=== PATIENT | male | born 1970 | race Two or more races ===

== ENCOUNTER 2017-12-30 13:59 | Emergency (ER) | payer OTHER ==
[2017-12-30 14:11] VITALS: BP 117/81
--- NOTE | 2017-12-30 14:33 | UC ---
Abdominal Pain Male HPI - HPI Summary HPI Summary: Mild, constant pain in R side just under ribs for almost two weeks. First noticed with bending forward to tie shoe -- sat up and had widespread muscle cramping in abdominal muscles, this passed after seconds to minutes, and the dull ache remained. Has been able to keep up normal activities, even gone running, hasn't gotten better or worse. Reports much more than normal alcohol intake in recent weeks because of social events and he developed reflux/GI discomfort which responded well to antacid and is completely gone now. Denies problems with urinary or bowel symptoms. No vomiting or diarrhea. - History of Current Complaint Chief Complaint: UCGeneralIllness Stated Complaint: SIDE PAIN Time Seen by Provider: 12/30/17 14:12 Hx Obtained From: Patient Onset/Duration: Sudden Onset, Lasting Weeks Timing: Constant Severity Initially: Mild Severity Currently: Mild Pain Intensity: 1 Location: Other - R lateral mid abd Radiates: Yes Radiates to: Back Character: Aching Alleviating Factor(s): Rest Associated Signs And Symptoms: Positive: Other - Allergies/Home Medications Allergies/Adverse Reactions: Allergies Allergy/AdvReac Type Severity Reaction Status Date / Time No Known Allergies Allergy Verified 12/30/17 14:05 Home Medications: Home Medications Calcium Carb/Magnesium Hydrox [Antacid 675-135 mg Tab Chew] 1 each PO DAILY PRN 12/30/17 [History Confirmed 12/30/17] PMH/Surg Hx/FS Hx/Imm Hx Previously Healthy: Yes - Surgical History Surgical History: Yes Surgery Procedure, Year, and Place: Hernia repair - Family History Known Family History: Positive: Hypertension - Social History Occupation: Employed Full-time Lives: With Family Alcohol Use: Weekly Substance Use Type: None Smoking Status (MU): Never Smoked Tobacco Review of Systems Constitutional: Negative Skin: Negative Eyes: Negative ENT: Negative Respiratory: Negative Cardiovascular: Negative Gastrointestinal: Abdominal Pain Genitourinary: Negative Motor: Negative Neurovascular: Negative Musculoskeletal: Negative Neurological: Negative Psychological: Negative Is Patient Immunocompromised?: No All Other Systems Reviewed And Are Negative: Yes Physical Exam Triage Information Reviewed: Yes Appearance: Well-Appearing, No Pain Distress, Well-Nourished Vital Signs: Initial Vital Signs Temp 97.7 F 12/30/17 14:06 Pulse 67 12/30/17 14:06 Resp 18 12/30/17 14:06 BP 117/81 12/30/17 14:06 Pulse Ox 98 12/30/17 14:06 Vital Signs Reviewed: Yes Eye Exam: Normal Eyes: Positive: Conjunctiva Clear ENT Exam: Normal ENT: Positive: Normal ENT inspection, Hearing grossly normal, Pharynx normal, TMs normal Dental Exam: Normal Neck exam: Normal Neck: Positive: Supple, Nontender, No Lymphadenopathy Respiratory Exam: Normal Respiratory: Positive: Chest non-tender, Lungs clear, Normal breath sounds, No respiratory distress, No accessory muscle use Cardiovascular Exam: Normal Cardiovascular: Positive: RRR, No Murmur Abdomen Description: Positive: No Organomegaly, Other: - focal mild tenderness on R side just below rib margin. Negative: CVA Tenderness (R), CVA Tenderness ( L), Distended, Guarding, Hernia @, McBurney's Point Tenderness Musculoskeletal Exam: Normal, Other - Able to twist trunk, sit, stand, walk, and bend forward without exacerbating side pain Musculoskeletal: Positive: Strength Intact, ROM Intact Neurological Exam: Normal Neurological: Positive: Alert Psychological Exam: Normal Skin Exam: Normal Abd Pain Male Course/Dx - Differential Dx/Clinical Impression Differential Diagnosis/HQI/PQRI: Constipation, Diverticulitis, Gall Bladder Disease, Renal Colic, Ureteral Stone Provider Diagnoses: Abdominal pain Discharge - Sign-Out/Discharge Documenting (check all that apply): Discharge/Admit/Transfer - Discharge Plan Condition: Stable Disposition: HOME Patient Education Materials: Abdominal Pain (ED) Referrals: Saleem العلي MD [Medical Doctor] - 1 Week Additional Instructions: We have not determined the cause of your pain today. Continue on a normal diet, minimize your alcohol intake, and look for new symptoms. There were cysts noted in your liver, but these do not have a worrisome or dangerous look to them. If needed, your primary care provider can order a follow -up test such as an ultrasound. If your pain gets worse, if you faint, if you have blood in your urine or stool , or if you develop fever, please go to the emergency department. I strongly recommend you try to get an appointment before January for further workup. 1-2 weeks would be best. Bloodwork pending. - Billing Disposition and Condition Condition: STABLE Disposition: HOME
--- NOTE | 2017-12-30 15:36 | RAD ---
CLINICAL HISTORY: 2 weeks of right flank and back pain COMPARISON: None TECHNIQUE: Noncontrast CT examination of the abdomen and pelvis from the lung bases through the initial tuberosities. FINDINGS: VISUALIZED LUNG BASES: The visualized lung bases are grossly clear. There is no pleural effusion. ABDOMEN AND PELVIS: Evaluation of the solid organs and vasculature is limited without intravenous contrast. There are multiple low-attenuation foci throughout the liver most consistent with benign cysts. The spleen, pancreas and adrenal glands are grossly normal in appearance. The gallbladder is normal. The kidneys are normal in appearance without focal mass, calcification or signs of hydronephrosis. Evaluation of the gastrointestinal tract is without contrast. The small and large bowel are not distended.The patient's normal appendix is identified in the right lower quadrant measuring 4 mm in diameter (coronal image 56). There is no gross retroperitoneal or mesenteric lymphadenopathy. Again seen is a partially visualized left hydrocele similar in appearance to the recent testicular ultrasound. The abdominal aorta and iliac arteries are normal in course and diameter. Mild degenerative changes of the lower thoracic and lumbar spine includes loss of intervertebral disc height and anterior marginal osteophyte formation most severely affecting L3/L4 and T12/L1.There are no sinister bone lesions. IMPRESSION: 1. No renal calculi or signs of obstructive uropathy. 2. Partially visualized is a small left-sided hydrocele corresponding to images seen on the September 12, 2017 testicular ultrasound. 3. Additional chronic and degenerative changes noted in the body the report unlikely to be directly responsible for the patient's current presentation.
[2017-12-30 19:00] LABS: ABS Basophils 0 10^3/ul (0-0.2); ABS Eosinophils 0 10^3/ul (0-0.6); ABS Lymphocytes 2.2 10^3/ul (1.0-4.8); ABS Monocytes 0.2 10^3/ul (0-0.8); ABS Neutrophils 1.6 10^3/ul (1.5-7.7); ABS Nucleated RBC 0 10^3/ul; Eosinophil % 0.7 % (0-6); Hematocrit 41 % (42-52); Hemoglobin 14.3 g/dl (14.0-18.0); Lymphocyte % 53.9 % (25-47); Mean Corpuscular HGB Conc 35 g/dl (31-36); Mean Corpuscular Hemoglobin 30 pg (27-31); Mean Corpuscular Volume 84 fL (80-94); Mean Platelet Volume 8.7 um3 (7.4-10.4); Nucleated Red Blood Cells % 0.3; Platelet Count 197 10^3/ul (150-450); Red Blood Count 4.83 10^6/ul (4.0-5.4); Red Cell Distribution Width 13 % (10.5-15); White Blood Count 4.1 10^3/ul (3.5-10.8)
[2017-12-30 19:24] LABS: EGFR Non-African American 75.4 (>60)
== END 2017-12-30 16:00 | disposition home or self-care (01) ==
LOC: UCEAST 13:59
DX: R10.11 Right upper quadrant pain (principal); N43.3 Hydrocele, unspecified; M51.35 Other intervertebral disc degeneration, thoracolumbar region
CPT/HCPCS: 36415; 74176; 80053; 81003; 85025; 99211; G0463

== ENCOUNTER 2018-01-06 15:38 | Emergency (ER) | payer OTHER ==
[2018-01-06 18:47] LABS: ABS Basophils 0 10^3/ul (0-0.2); ABS Eosinophils 0.1 10^3/ul (0-0.6); ABS Lymphocytes 2.8 10^3/ul (1.0-4.8); ABS Monocytes 0.4 10^3/ul (0-0.8); ABS Neutrophils 1.5 10^3/ul (1.5-7.7); ABS Nucleated RBC 0 10^3/ul; Eosinophil % 1.1 % (0-6); Hematocrit 42 % (42-52); Lymphocyte % 58.5 % (25-47); Mean Corpuscular HGB Conc 36 g/dl (31-36); Mean Corpuscular Hemoglobin 30 pg (27-31); Mean Corpuscular Volume 84 fL (80-94); Mean Platelet Volume 7.7 um3 (7.4-10.4); Nucleated Red Blood Cells % 0.1; Platelet Count 219 10^3/ul (150-450); Red Blood Count 5.03 10^6/ul (4.0-5.4); Red Cell Distribution Width 13 % (10.5-15); White Blood Count 4.8 10^3/ul (3.5-10.8)
[2018-01-06 19:04] LABS: EGFR Non-African American 68.6 (>60)
[2018-01-06] MEDS ORDERED: Ibuprofen TAB* 800 MG PO ONE (19:23)
[2018-01-06 19:45] VITALS: BP 129/96
--- NOTE | 2018-01-07 02:46 | ED ---
Salomon Jackson Rebecca, scribed for Pricila Hunt MD on 01/06/18 at 1924 . Abdominal Pain/Male - HPI Summary HPI Summary: Pt is a 47 y/o M who presents to ED c/o right flank pain. Initially, on triage pain was moderate, ranked 5/10, but on nurse's reassessment, pain was not present. Sx aggravated and alleviated by nothing. Denies N/V/D, fever. Pt was seen 7 days ago for similar symptoms during which he had a CT Abd/Pel that showed a small left hydrocele. - History of Current Complaint Chief Complaint: EDAbdPain Stated Complaint: FLANK PAIN Time Seen by Provider: 01/06/18 19:08 Hx Obtained From: Patient Onset/Duration: Resolved Severity Initially: Moderate - 5/10 Severity Currently: None Pain Intensity: 0 Pain Scale Used: 0-10 Numeric Location: Flank - right Aggravating Factor(s): Nothing Alleviating Factor(s): Nothing Associated Signs And Symptoms: Positive: Negative Similar Episode/Dx As:: 8 days ago - Allergies/Home Medications Allergies/Adverse Reactions: Allergies Allergy/AdvReac Type Severity Reaction Status Date / Time No Known Allergies Allergy Verified 12/30/17 14:05 PMH/Surg Hx/FS Hx/Imm Hx Endocrine/Hematology History: Denies: Hx Diabetes Cardiovascular History: Denies: Hx Hypertension History: Denies: Hx Renal Disease - Surgical History Surgery Procedure, Year, and Place: Hernia repair Infectious Disease History: No Infectious Disease History: Denies: Traveled Outside the [place] in Last 30 Days - Family History Known Family History: Positive: Hypertension - Social History Alcohol Use: Weekly Substance Use Type: Reports: None Smoking Status (MU): Never Smoked Tobacco Review of Systems Negative: Fever Negative: Vomiting, Diarrhea, Nausea Positive: flank pain - Right All Other Systems Reviewed And Are Negative: Yes Physical Exam - Summary Physical Exam Summary: VITAL SIGNS: Reviewed. GENERAL: ~Patient is a well-developed and nourished male who is lying comfortable in the stretcher. Patient is not in any acute respiratory distress. HEAD AND FACE: No signs of trauma. No ecchymosis, hematomas or skull depressions. No sinus tenderness. EYES: PERRLA, EOMI x 2, No injected conjunctiva, no nystagmus. EARS: Hearing grossly intact. Ear canals and tympanic membranes are within normal limits. MOUTH: Oropharynx within normal limits. NECK: Supple, trachea is midline, no adenopathy, no JVD, no carotid bruit, no c- spine tenderness, neck with full ROM. CHEST: Symmetric, no tenderness at palpation LUNGS: Clear to auscultation bilaterally. No wheezing or crackles. CVS: Regular rate and rhythm, S1 and S2 present, no murmurs or gallops appreciated. ABDOMEN: Soft, non-tender. No signs of distention. No rebound no guarding, and no masses palpated. Bowel sounds are normal. EXTREMITIES: FROM in all major joints, no edema, no cyanosis or clubbing. NEURO: Alert and oriented x 3. No acute neurological deficits. Speech is normal and follows commands. SKIN: Dry and warm Triage Information Reviewed: Yes Vital Signs On Initial Exam: Initial Vitals Temp Pulse Resp BP Pulse Ox 98 F 60 16 129/83 100 01/06/18 15:39 01/06/18 15:39 01/06/18 15:39 01/06/18 15:39 01/06/18 15:39 Vital Signs Reviewed: Yes Diagnostics - Vital Signs Vital Signs Temp Pulse Resp BP Pulse Ox 01/06/18 17:44 97.7 F 62 16 116/77 100 01/06/18 15:39 98 F 60 16 129/83 100 - Laboratory Lab Results: Lab Results 01/06/18 01/06/18 Range/Units 18:41 18:41 WBC 4.8 (3.5-10.8) 10^3/ul RBC 5.03 (4.0-5.4) 10^6/ul Hgb 15.0 (14.0-18.0) g/dl Hct 42 (42-52) % MCV 84 (80-94) fL MCH 30 (27-31) pg MCHC 36 (31-36) g/dl RDW 13 (10.5-15) % Plt Count 219 (150-450) 10^3/ul MPV 7.7 (7.4-10.4) um3 Neut % (Auto) 31.9 L (38-83) % Lymph % (Auto) 58.5 H (25-47) % [place] % (Auto) 7.5 H (0-7) % Eos % (Auto) 1.1 (0-6) % Baso % (Auto) 1.0 (0-2) % Absolute Neuts (auto) 1.5 (1.5-7.7) 10^3/ul Absolute Lymphs (auto) 2.8 (1.0-4.8) 10^3/ul Absolute Monos (auto) 0.4 (0-0.8) 10^3/ul Absolute Eos (auto) 0.1 (0-0.6) 10^3/ul Absolute Basos (auto) 0 (0-0.2) 10^3/ul Absolute Nucleated RBC 0 10^3/ul Nucleated RBC % 0.1 Sodium 139 (139-145) mmol/L Potassium 4.3 (3.5-5.0) mmol/L Chloride 105 (101-111) mmol/L Carbon Dioxide 29 (22-32) mmol/L Anion Gap 5 (2-11) mmol/L BUN 17 (6-24) mg/dL Creatinine 1.14 (0.67-1.17) mg/dL Est GFR ( Amer) 88.2 (>60) Est GFR (Non-Af Amer) 68.6 (>60) BUN/Creatinine Ratio 14.9 (8-20) Glucose 68 L (70-100) mg/dL Calcium 9.7 (8.6-10.3) mg/dL Total Bilirubin 0.50 (0.2-1.0) mg/dL AST 24 (13-39) U/L ALT 24 (7-52) U/L Alkaline Phosphatase 52 (34-104) U/L Total Protein 7.3 (6.4-8.9) g/dL Albumin 4.5 (3.2-5.2) g/dL Globulin 2.8 (2-4) g/dL Albumin/Globulin Ratio 1.6 (1-3) Result Diagrams: 01/06/18 18:41 01/06/18 18:41 Lab Statement: Any lab studies that have been ordered have been reviewed, and results considered in the medical decision making process. Abdominal Pain Fem Course/Dx - Course Assessment/Plan: Pt is a 47 y/o M who presents to ED c/o right flank pain. Initially, on triage pain was moderate, ranked 5/10, but on nurse's reassessment , pain was not present. Denies N/V/D, fever. Pt was seen 7 days ago for similar symptoms during which he had a CT Abd/Pel that showed a small left hydrocele. Physical examination was unremarkable. Pain is not present on examination. Pt will be D/C to home with Dx of musculoskeletal pain and back pain with Rx for motrin. He understands and agrees. - Diagnoses Provider Diagnoses: Musculoskeletal pain, Back pain Discharge - Sign-Out/Discharge Documenting (check all that apply): Discharge/Admit/Transfer - Discharge - Discharge Plan Condition: Stable Disposition: HOME Prescriptions: Ibuprofen TAB* [Motrin TAB* 800 MG] 800 mg PO Q6H PRN #30 tab PRN Reason: Pain Patient Education Materials: Musculoskeletal Pain (ED), Back Pain (ED) Referrals: [facility] REFERRAL [Outside] - 3 Days Additional Instructions: RETURN TO EMERGENCY DEPARTMENT FOR ANY NEW OR WORSENING SYMPTOMS. The documentation as recorded by the Salomon chappell Rebecca accurately reflects the service I personally performed and the decisions made by , Pricila Hunt MD.
== END 2018-01-06 19:44 | disposition home or self-care (01) ==
LOC: ED 15:38
DX: M79.1 Myalgia (principal); M54.9 Dorsalgia, unspecified
CPT/HCPCS: 36415; 80053; 85025; 99282

== ENCOUNTER 2018-03-29 16:08 | Emergency (ER) | payer OTHER ==
[2018-03-29] MEDS ORDERED: Neomycin/Polym/Bacit TOP OINT* 15 GM TOPICAL ONE (18:14)
[2018-03-29] MEDS ORDERED: Tetan/Diph/Pertus SYR(Tdap)* 0.5 ML SYR(BOOSTRIX) use SYR IM ONE (18:15)
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
[2018-03-29 18:43] VITALS: BP 119/93
== END 2018-03-29 18:42 | disposition home or self-care (01) ==
LOC: ED 16:08
DX: T20.27XA Burn of second degree of neck, initial encounter (principal); T20.20XA Burn of second degree of head, face, and neck, unspecified site, initial encounter; T22.20XA Burn of second degree of shoulder and upper limb, except wrist and hand, unspecified site, initial encounter; T31.0 Burns involving less than 10% of body surface; X08.8XXA Exposure to other specified smoke, fire and flames, initial encounter; Y93.G2 Activity, grilling and smoking food; Y92.9 Unspecified place or not applicable; Z23 Encounter for immunization; Z82.49 Family history of ischemic heart disease and other diseases of the circulatory system
CPT/HCPCS: 16020; 90471; 90715; 99282; A9270-GY